=== PATIENT | male | born 1980 | race Hispanic/Latino ===

== ENCOUNTER 2019-03-11 03:58 | Emergency (ER) | payer OTHER ==
[2019-03-11] MEDS ORDERED: Ibuprofen 800 MG TAB ONE (04:15)
--- NOTE | 2019-03-11 07:21 | RAD ---
RIGHT WRIST 3 VIEWS: Date: 03/11/19 INDICATION: Right wrist injury. COMPARISON: None. FINDINGS: There is a small calcific density seen in the region of the scaphotrapezial joint capsule which is no nspecific. No definite acute fracture is evident. No soft tissue swelling is grossly evident. IMPRESSION: Small calcific density seen within the joint capsule of the scaphotrapezial capsule may reflect seque [place]e of remote injury. No definite acute fracture is evident. If clinically indicated, follow-up MRI o f the right wrist may be helpful to evaluate abnormality. POS: JAYY
--- NOTE | 2019-03-11 08:11 | RAD ---
SACRUM 3 VIEWS: Date: 03/11/19 INDICATION: Injury. COMPARISON: None. FINDINGS: Sacral arcs are in continuity. SI joints are normal appearing. Small phlebolith seen within the lower left hemipelvis. No definite acute fracture or subluxation is demonstrated. IMPRESSION: No acute osseous abnormality. POS: BH
--- NOTE | 2019-03-11 08:12 | RAD ---
LUMBAR SPINE 2 VIEWS: Date: 03/11/19 INDICATION: History of low back injury. COMPARISON: None. FINDINGS: There are five lumbar-type vertebrae. Vertebral body heights and disc spaces appear relatively well m aintained. There is mild disc space loss at L5-S1. IMPRESSION: No acute osseous abnormality. Mild disc degenerative disease of the lumbar spine. POS: BH
== END 2019-03-11 05:17 | disposition home or self-care (01) ==
LOC: MADERS 03:58
DX: S62.001A Unspecified fracture of navicular [scaphoid] bone of right wrist, initial encounter for closed fracture (principal); S39.012A Strain of muscle, fascia and tendon of lower back, initial encounter; S20.212A Contusion of left front wall of thorax, initial encounter; S80.811A Abrasion, right lower leg, initial encounter; I48.91 Unspecified atrial fibrillation; E11.9 Type 2 diabetes mellitus without complications; I10 Essential (primary) hypertension; F17.210 Nicotine dependence, cigarettes, uncomplicated; Z79.82 Long term (current) use of aspirin; Z79.84 Long term (current) use of oral hypoglycemic drugs; V69.9XXA Occupant (driver) (passenger) of heavy transport vehicle injured in unspecified traffic accident, initial encounter
CPT/HCPCS: 72100; 72220; G0390